=== PATIENT | female | born 1935 | race Caucasian/White ===

== ENCOUNTER → 2017-02-02 | Outpatient (CLI) | payer MEDICARE, OTHER | END | disposition disaster alternative care site (69) | LOC: GRAD 07:38 | DX: I71.4 Abdominal aortic aneurysm, without rupture (principal); I70.90 Unspecified atherosclerosis; I72.3 Aneurysm of iliac artery; Z90.49 Acquired absence of other specified parts of digestive tract; Z90.710 Acquired absence of both cervix and uterus | CPT/HCPCS: Q9967 ==

== ENCOUNTER → 2017-06-06 | Outpatient (CLI) | payer MEDICARE, OTHER ==
--- NOTE | ~2017-06-06 | PUL ---
PATIENT'S NAME: MANJINDER HANLEY [facility] AGE: 81 Y [address] 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 Pretest SpO2 was 95%, which went down to 92% with activity, and was 92% post test. Pretest blood pressure was 136/73, post test blood pressure was 169/80. PHYSICIAN INTERPRETATION: There was no exercise induced desaturation. Total distance walked was 1425 feet. MD CHOCO MACARIO/kali /[id number] dtt: 06/14/17 1619 ESAU MEENAKSHI dtd: 06/08/17 0937
--- NOTE | ~2017-06-06 | PUL ---
PATIENT'S NAME: MANJINDER HANLEY [facility] AGE: 81 Y [address] 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 Measurement of lung volumes. Measurement of maximum voluntary ventilation. Measurement of diffusing capacity. RESULTS: Spirometry showed pre bronchodilator FVC was 2.44 liters, 104% of predicted; post bronchodilator FVC was 2.59 liters, 110% of predicted.; pre bronchodilator FEV1 was 1.67 liters, 96% of predicted; post-bronchodilator FEV1 was 1.83 liters, 105% of predicted. FEV1/FVC was 69, 93% of predicted. FEF 25-75% was 0.88 liters/second, 69% of predicted. Maximum voluntary ventilation was 54 liters/minute, 71% of predicted. Lung volumes showed total lung capacity was 4.13 liters, 95% of predicted. Functional residual capacity was 2.33 liters, 95% of predicted. Residual volume was 1.70 liters, 91% of predicted. Diffusing capacity not adjusted for hemoglobin was 60%. Single breath alveolar volume was 3.19 liters which is a poor estimate of total lung capacity. The flow volume loop pattern was normal. PHYSICIAN INTERPRETATION: The above data and a corresponding flow volume curve suggests mild airflow obstruction without any bronchodilator response. There is no evidence of hyperexpansion or gas trapping, there is mild gas transfer impairment. MD CHOCO MACARIO/kali /[id number] dtt: 06/14/17 1617 , NESTOR CIFUENTES dtd: 06/08/17 0933
--- NOTE | ~2017-06-06 | PUL ---
PATIENT'S NAME: MANJINDER HANLEY [facility] AGE: 81 Y [address] 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 The pre exercise saturation was 95% which dropped to 92%, stayed at 92% post walking. Minimum heart rate noted pre exercise was 77 beats per minute, post exercise it was 97 beats per minute. Pretest blood pressure was 136/73, which went up to 159/80. PHYSICIAN INTERPRETATION: No exercise induced desaturation was noticed. MD CHOCO MACARIO/kali /[id number] dtt: 07/06/17 1050 ESAU MEENAKSHI dtd: 07/03/17 1515
== END | disposition disaster alternative care site (69) ==
LOC: GRTH 06-05 11:00
DX: J45.909 Unspecified asthma, uncomplicated (principal); J43.9 Emphysema, unspecified; R05 Cough